=== PATIENT | male | born 1995 | race Hispanic/Latino ===

== ENCOUNTER 2018-09-13 03:50 | Emergency (ER) | payer OTHER ==
[~2018-09-13] VITALS: Ht 180.3 cm; Wt 76.4 kg
[2018-09-13 05:25] LABS: BASO % 0.4 % (0.0-1.0); EOS % 0.4 % (0.0-3.0); HEMATOCRIT 43.7 % (42.0-52.0); HEMOGLOBIN 15.3 g/dl (13.5-17.5); LYMPH # 2.7 10^3/uL (1.5-6.5); LYMPH % 26.3 % (24.0-44.0); MEAN CORPUSCULAR HEMOGLOBIN 31.4 pg (27.0-33.0); MEAN CORPUSCULAR VOLUME 89.5 fl (80.0-96.0); MONO # 0.9 10^3/uL (0.0-0.8); MONO % 9.1 % (0.0-5.0); NEUTROPHILS # 6.6 10^3/uL (1.8-7.7); NEUTROPHILS % 63.4 % (36.0-66.0); PLATELET COUNT, AUTOMATED 289 10^3/uL (150-450); RED BLOOD COUNT 4.88 10^6/uL (4.30-6.10); WHITE BLOOD COUNT 10.4 10^3/uL (4.0-10.0)
[2018-09-13] MEDS ORDERED: NS 1,000 ML IV ONE (05:45)
[2018-09-13 06:08] LABS: BLOOD UREA NITROGEN 15 MG/DL (7-18); CALCIUM LEVEL 9.2 MG/DL (8.5-10.1); CARBON DIOXIDE LEVEL 25 MEQ/L (21-32); CHLORIDE LEVEL 104 MEQ/L (98-107); CPK CREATINE PHOSPHOKINASE 234 U/L (39-308); CREATININE FOR GFR 1.04 MG/DL (0.70-1.30); FREE T4 1.21 NG/DL (0.76-1.46); GLOMERULAR FILTRATION RATE > 60.0 (>60); GLUCOSE, FASTING 90 MG/DL (70-100); MB/CK RELATIVE INDEX 0.98 (< OR =4); POTASSIUM SERUM 3.8 MEQ/L (3.5-5.1); SODIUM LEVEL 140 MEQ/L (136-145); TROPONIN I < 0.02 NG/ML (< 0.10)
[2018-09-13 06:34] VITALS: BP 120/79
--- NOTE | 2018-09-13 10:09 | REP ---
REASON: Chest pain. COMPARISON: None. FINDINGS: The superior mediastinal structures are midline. The cardiac silhouette is unremarkable in size, shape, and position. The diaphragmatic surfaces of the lungs are regular, and the costophrenic angles are clear. The pulmonary lombardi are clear. The imaged osseous structures are intact. IMPRESSION: There is no acute cardiopulmonary disease. Electronically Signed by Travis Sánchez DO 09/13/2018 12:56 P
--- NOTE | 2018-09-13 18:36 | ECGEPIP ---
[facility] Test Date: 2018-09-13 Pat Name: MANOJ FRANKS Department: Room: - Gender: Male Broke Worker: LEONID : [id number] Requested By: ZEINAB Campbell Order Number: [id number] Reading MD: Kasi Anderson Measurements Intervals [place] Rate: 57 P: 35 UT: 101 QRS: 82 QRSD: 104 T: 53 QT: 392 QTc: 382 Interpretive Statements Sinus bradycardia Within normal limits for age Electronically Signed on 09-13-2018 18:36:16 EDT by Kasi Anderson
== END 2018-09-13 06:42 | disposition home or self-care (01) ==
LOC: M ED 03:50
DX: R00.2 Palpitations (principal); R00.1 Bradycardia, unspecified; Z72.0 Tobacco use

== ENCOUNTER → 2019-05-18 | Outpatient (CLI) | payer OTHER ==
--- NOTE | 2019-05-18 18:48 | REP ---
Left knee series: Six views. History: Injury. Findings: Six views of the left knee demonstrate clothing artifact over the distal thigh. Bones, joints and soft tissues are otherwise unremarkable. No fracture, subluxation, or joint effusion is seen. Impression:: Clothing artifact, otherwise negative left knee radiographs. Electronically Signed by Hugh Lazo MD 05/18/2019 06:37 P
--- NOTE | 2019-05-18 18:57 | REP ---
Left ankle series: Four views. History: Injury. Findings: Moderate anterolateral soft-tissue swelling is seen. Ankle mortise is intact. No fracture or subluxation is seen. Lateral view shows soft tissue swelling in the pre-Achilles fat question Achilles tendon injury. Correlate clinically. Otherwise negative. Impression: Anterolateral soft-tissue swelling at the ankle. No fractures seen. Soft tissue swelling in the pre-Achilles fat question Achilles tendon integrity. Correlate clinically. Electronically Signed by Hugh Lazo MD 05/18/2019 06:48 P
== END ==
LOC: M LRY 18:07
PROVIDERS: ATTEND Physician Assistant
DX: S89.92XA Unspecified injury of left lower leg, initial encounter (principal); W18.30XA Fall on same level, unspecified, initial encounter; Y92.009 Unspecified place in unspecified non-institutional (private) residence as the place of occurrence of the external cause
CPT/HCPCS: 73564; 73610; G0463